=== PATIENT | female | born 1995 | race African-American/Black ===

== ENCOUNTER 2021-03-23 15:39 | Emergency (ER) | payer MEDICAID ==
[~2021-03-23] VITALS: Ht 172.7 cm; Wt 83.0 kg
[2021-03-23] MEDS ORDERED: MORPHINE SULFATE 4 MG/ML CPJ (NOT FOR IM USE) IV STA (17:41)
[2021-03-23] MEDS ORDERED: OXYC-100 MT (19:16)
[2021-03-23] MEDS ORDERED: IBUP-2029 MT (19:23)
[2021-03-23] MEDS ORDERED: PENI500T MT (19:24)
[2021-03-23 20:00] VITALS: BP 121/82
[2021-03-24] MEDS ORDERED: CLINDAMYCIN HCL 150MG CAPSULE PO SCH
== END 2021-03-23 19:37 | disposition home or self-care (01) ==
LOC: ER 15:39
DX: S03.01XA Dislocation of jaw, right side, initial encounter (principal); Z98.890 Other specified postprocedural states; Y04.0XXA Assault by unarmed brawl or fight, initial encounter; Y93.89 Activity, other specified; Y92.89 Other specified places as the place of occurrence of the external cause; Y99.8 Other external cause status
CPT/HCPCS: 70486; 71045; 72040; 99285

== ENCOUNTER 2021-12-28 22:58 | Emergency (ER) | payer MEDICAID, OTHER ==
[~2021-12-28] VITALS: Ht 170.2 cm; Wt 69.3 kg
[~2021-12-28 22:58] MED LIST: IBUP-2029 MT; PENI500T MT
[2021-12-29 00:40] VITALS: BP 110/43
[2021-12-29] MEDS ORDERED: IBUPROFEN 600MG TABLET PO ONE (01:30)
== END 2021-12-29 00:15 | disposition home or self-care (01) ==
LOC: ER 22:58
DX: G89.29 Other chronic pain (principal); R51.9 Headache, unspecified; Z88.0 Allergy status to penicillin
CPT/HCPCS: 99281